=== PATIENT | male | born 1950 | race Caucasian/White ===

== ENCOUNTER 2019-02-19 00:11 | Inpatient (IN) ==
[2019-02-19 00:51] LABS: Bilirubin,Urine Negative (Negative); Blood,Urine Negative (Negative); Clarity,Urine Clear (Clear); Color,Urine Yellow (Yellow); Glucose,Urine (UA) Normal (Normal); Ketones,Urine Negative (Negative); Leukocyte Esterase,Urine Negative (Negative); Nitrite,Urine Negative (Negative); PH,Urine 5.5 pH Units (5.0-8.0); Protein,Urine Negative (Neg-Trace); Specific Gravity,Urine 1.027 (1.010-1.025); Urobilinogen,Urine Normal (Normal)
[2019-02-19 01:30] LABS: Basophils # 0.1 K/mcL (0.0-0.2); Basophils % 0.4 %; Eosinophils # 0.2 K/mcL (0.0-0.6); Eosinophils % 1.4 %; Hematocrit 43.8 % (37.5-50.1); Hemoglobin 14.4 g/dL (12.9-16.9); Immature Granulocytes % 0.4 % (0-4); Lymphocytes # 2.2 K/mcL (0.6-4.6); Mean Corpuscular HGB Conc 32.9 g/dL (31.6-35.5); Mean Corpuscular Hemoglobin 32.4 pg (28.0-33.3); Mean Corpuscular Volume 98.4 fL (83.0-100.0); Mean Platelet Volume 11.7 fL (9.4-12.4); Neutrophils # 9.5 K/mcL (1.6-8.9); Platelet Count 205 K/mcL (140-400); Red Blood Count 4.45 M/mcL (4.19-5.50); Red Cell Distribution Width 12.6 % (11.5-14.5); Segmented Neutrophils % 67.8 %; White Blood Count 13.9 K/mcL (4.3-11.1)
[2019-02-19 01:49] LABS: Albumin 4.4 g/dL (3.5-5.7); Albumin/Globulin Ratio 1.6 (1.1-2.2); Bilirubin,Direct 0.1 mg/dL (0.0-0.2); Bilirubin,Indirect 0.6 mg/dL (0.0-1.2); Bilirubin,Total 0.7 mg/dL (0.3-1.0); Calcium 9.4 mg/dL (8.6-10.3); Globulin 2.8 g/dL (2.4-3.5); Potassium 4.1 mEq/L (3.5-5.1); Total Protein 7.2 g/dL (6.4-8.9)
[2019-02-19] MEDS ORDERED: Isovue-370 500 ML BOTTLE IVP ONE ×2 (03:54→04:22)
[2019-02-19] MEDS ORDERED: 0.9 % Sodium Chloride 1,000 ML IVC ONE ×2 (04:01→04:04)
[2019-02-19] MEDS ORDERED: *HR* FentaNYL (PF) 100 MCG/2 ML VIAL IVP ONE (04:01)
[2019-02-19] MEDS ORDERED: Ondansetron 4 MG/2 ML VIAL IVP ONE (04:01)
--- NOTE | 2019-02-19 04:10 | Emergency Department Note ---
Disposition Clinical Impression: Abdominal pain Qualifiers: Abdominal location: right lower quadrant Qualified Code(s): R10.31 - Right lower quadrant pain Disposition: Still a Patient Condition: Undetermined Referrals: NONE,PCP [Non-Partnered Physician] - Forms: ED Satisfaction Letter, Work/School Release Time of Disposition: 06:00 Abdominal Pain HPI - General Chief Complaint: ED Abdominal Pain Stated Complaint: right lower quadrant pain/chills Time Seen by Provider: 02/19/19 03:46 Source: patient Mode of arrival: ambulatory Limitations: no limitations Nursing Notes Reviewed: Yes Vital Signs Reviewed: Yes - History of Present Illness HPI Narrative: Alert and oriented nontoxic-appearing 68-year-old male presents for evaluation of a day and a half worth of progressively worsening right lower quadrant abdominal pain. This pain is associated with subjective fever and chills as well as nausea. He denies any vomiting, diarrhea, constipation, urinary symptoms, testicular pain or swelling, blood in urine, or blood in the stools. He denies any aggravating or alleviating factors. He denies any known sick contacts or recent foreign travel. Pt Subjective Complaint: abdominal pain Onset (ago): day(s) Consistency: Worsening Location: RLQ Pain Severity: moderate Pain Scale: 8 Quality: aching Radiation: none Migration to: no migration Improves with: nothing Worsens with: nothing Associated symptoms: Reports: nausea, fever, chills. Denies: vomiting, diarrhea, constipation, dysuria, hematemesis, hematochezia, melena, hematuria, anorexia Treatments prior to arrival: none - Related Data Home Medications Medication Instructions Recorded Confirmed Ascorbate Calcium [Vitamin C] 500 mg PO DAILY 06/19/17 06/19/17 Aspirin [Lo-Dose Aspirin EC] 81 mg PO DAILY 06/19/17 06/19/17 Ergocalciferol (VITAMIN D2) 800 unit PO DAILY 06/19/17 06/19/17 [Vitamin D] Fenofibrate Nanocrystallized 145 mg PO DAILY 06/19/17 06/19/17 [Tricor] Insulin ASPART [Novolog Flexpen] 8 unit SQ TID 06/19/17 06/19/17 Insulin Glargine,Hum.rec.anlog 28 unit SQ QPM 06/19/17 06/19/17 [Lantus Solostar] Lisinopril [Zestril] 5 mg PO DAILY 06/19/17 06/19/17 Loratadine [Allergy Relief] 10 mg PO DAILY 06/19/17 06/19/17 Multivit-Min/FA/Lycopen/Lutein [A 1 tab PO DAILY 06/19/17 06/19/17 Thru Z Select Multivit Tab] Pregabalin [Lyrica] 150 mg PO BID 06/19/17 06/19/17 Tamsulosin [Flomax] 0.4 mg PO DAILY 06/19/17 06/19/17 Allergies Allergy/AdvReac Type Severity Reaction Status Date / Time atorvastatin [From Lipitor] AdvReac See Verified 11/10/18 17:13 Comments All systems ED: reviewed and negative except as stated. Review of Systems: As Per HPI Constitutional: Reports: as per HPI, fever, chills. Denies: weakness, weight change Eyes: Denies: eye pain, eye discharge, vision change ENT ED: Denies: ear pain, throat pain, dental pain, hearing loss, epistaxis, congestion, dysphagia Cardiovascular: Denies: chest pain, palpitations, dyspnea on exertion, edema, syncope Respiratory: Denies: cough, dyspnea, wheezes, hemoptysis, stridor Gastrointestinal: Reports: as per HPI, abdominal pain, nausea. Denies: vomiting, diarrhea, constipation, hematemesis, melena, hematochezia Genitourinary: Denies: urgency, dysuria, frequency, hematuria Musculoskeletal: Denies: back pain, neck pain, arthralgia, myalgia Integumentary: Denies: rash, abrasion, lesions Neurological: Denies: headache, weakness, numbness, paresthesias, confusion, abnormal gait, vertigo Psychiatric: Denies: anxiety, depression, suicidal thoughts, homicidal thoughts, auditory hallucinations, visual hallucinations Endocrine: Denies: fatigue Hematological/Lymphatic: Denies: easy bleeding, easy bruising Allergic/Immunologic: Denies: facial swelling, urticaria Abdominal Pain PMH - Past Medical History Medical history: Reports: arthritis, diabetes, hypertension Male Surgical History: Reports: Tonsillectomy Psychiatric history: Reports: no psych history - Social History Smoking status: Former smoker Alcohol use: Reports: none Drug use: Reports: none Physical Exam - General Limitations: no limitations General appearance: alert, in no apparent distress - Head Head exam: atraumatic, normocephalic, normal inspection - Eye Eye exam: Present: normal appearance, PERRL, EOMI. Absent: conjunctival injection - ENT ENT exam: mucous membranes moist - Neck Neck exam: Present: normal inspection, full ROM - Chest Chest inspection: Present: normal inspection, symmetric chest wall rise - Respiratory Respiratory exam: Present: normal lung sounds bilaterally. Absent: respiratory distress, wheezes, stridor, accessory muscle use, prolonged expiratory phase - Cardiovascular Cardiovascular exam: Present: regular rate, normal rhythm, normal heart sounds - Abdominal Exam Abdominal exam: Present: soft, tenderness, rebound (Right lower quadrant, mild), normal bowel sounds, obturator sign, Gustafson's sign, Rovsing's sign, tenderness at McBurney's Point. Absent: distention, guarding, rigidity, psoas sign, heel tap sign, mass Abdominal tenderness: Present: RUQ, RLQ, suprapubic - Extremities Exam Extremities exam: Present: normal inspection, full ROM - Neurological Exam Neurological exam: Present: alert, oriented X3, normal gait - Psychiatric Psychiatric exam: Present: normal affect, normal mood - Skin Skin exam: Present: warm, dry, intact, normal color Course Vital Signs Temperature 98.0 F 02/19/19 00:14 Pulse Rate 90 02/19/19 00:14 Respiratory Rate 20 02/19/19 00:14 Blood Pressure 132/84 02/19/19 00:14 O2 Sat by Pulse Oximetry 100 02/19/19 00:14 Temperature 98.0 F 02/19/19 00:14 Pulse Rate 74 02/19/19 05:39 Respiratory Rate 18 02/19/19 05:39 Blood Pressure 110/66 02/19/19 05:39 O2 Sat by Pulse Oximetry 94 02/19/19 05:39 Oxygen Delivery Oxygen Delivery Room Air Abdominal Pain - Medical Records Medical records reviewed: Yes I reviewed the patient's medical records. - Lab Data Lab results reviewed: Yes I reviewed the patient's lab results. Lab results narrative: Lab Results 02/19/19 02/19/19 02/19/19 Range/Units 00:32 00:51 00:51 WBC 13.9 H (4.3-11.1) K/mcL RBC 4.45 (4.19-5.50) M/mcL Hgb 14.4 (12.9-16.9) g/dL Hct 43.8 (37.5-50.1) % MCV 98.4 (83.0-100.0) fL MCH 32.4 (28.0-33.3) pg MCHC 32.9 (31.6-35.5) g/dL RDW 12.6 (11.5-14.5) % Plt Count 205 (140-400) K/mcL MPV 11.7 (9.4-12.4) fL Immature Gran % 0.4 (0-4) % Seg Neutrophils % 67.8 % Lymphocytes % 16.0 % Monocytes % 14.0 % Eosinophils % 1.4 % Basophils % 0.4 % Neutrophils # 9.5 H (1.6-8.9) K/mcL Lymphocytes # 2.2 (0.6-4.6) K/mcL Monocytes # 2.0 H (0.0-1.3) K/mcL Eosinophils # 0.2 (0.0-0.6) K/mcL Basophils # 0.1 (0.0-0.2) K/mcL Sodium 137 (136-145) mEq/L Potassium 4.1 (3.5-5.1) mEq/L Chloride 106 (98-107) mEq/L Carbon Dioxide 24 (23-29) mEq/L BUN 20 (8-23) mg/dL Creatinine 1.68 H (0.70-1.30) mg/dL Est GFR ( Amer) 50 L (> 60) Est GFR (Non-Af Amer) 41 L (> 60) BUN/Creatinine Ratio 12 (6-26) Glucose 148 H (70-105) mg/dL Calculated Osmolality 289 (280-300) Calcium 9.4 (8.6-10.3) mg/dL Total Bilirubin 0.7 (0.3-1.0) mg/dL Direct Bilirubin 0.1 (0.0-0.2) mg/dL Indirect Bilirubin 0.6 (0.0-1.2) mg/dL AST 20 (13-39) Units/L ALT 25 (7-52) Units/L Alkaline Phosphatase 41 (34-104) Units/L Serum Total Protein 7.2 (6.4-8.9) g/dL Albumin 4.4 (3.5-5.7) g/dL Globulin 2.8 (2.4-3.5) g/dL Albumin/Globulin Ratio 1.6 (1.1-2.2) Amylase 51 (29-103) Units/L Lipase 26 (11-82) Units/L Urine Color Yellow (Yellow) Urine Clarity Clear (Clear) Urine pH 5.5 (5.0-8.0) pH Units Ur Specific [place] 1.027 H (1.010-1.025) Urine Protein Negative (Neg-Trace) mg/dL Urine Glucose (UA) Normal (Normal) mg/dL Urine Ketones Negative (Negative) mg/dL Urine Blood Negative (Negative) Urine Nitrite Negative (Negative) Urine Bilirubin Negative (Negative) Urine Urobilinogen Normal (Normal) mg/dL Ur Leukocyte Esterase Negative (Negative) Ur Culture Indicated? NO (NO) Result diagrams: 02/19/19 00:51 02/19/19 00:51 Lab Results 02/19/19 02/19/19 02/19/19 Range/Units 00:32 00:51 00:51 WBC 13.9 H (4.3-11.1) K/mcL RBC 4.45 (4.19-5.50) M/mcL Hgb 14.4 (12.9-16.9) g/dL Hct 43.8 (37.5-50.1) % MCV 98.4 (83.0-100.0) fL MCH 32.4 (28.0-33.3) pg MCHC 32.9 (31.6-35.5) g/dL RDW 12.6 (11.5-14.5) % Plt Count 205 (140-400) K/mcL MPV 11.7 (9.4-12.4) fL Immature Gran % 0.4 (0-4) % Seg Neutrophils % 67.8 % Lymphocytes % 16.0 % Monocytes % 14.0 % Eosinophils % 1.4 % Basophils % 0.4 % Neutrophils # 9.5 H (1.6-8.9) K/mcL Lymphocytes # 2.2 (0.6-4.6) K/mcL Monocytes # 2.0 H (0.0-1.3) K/mcL Eosinophils # 0.2 (0.0-0.6) K/mcL Basophils # 0.1 (0.0-0.2) K/mcL Sodium 137 (136-145) mEq/L Potassium 4.1 (3.5-5.1) mEq/L Chloride 106 (98-107) mEq/L Carbon Dioxide 24 (23-29) mEq/L BUN 20 (8-23) mg/dL Creatinine 1.68 H (0.70-1.30) mg/dL Est GFR ( Amer) 50 L (> 60) Est GFR (Non-Af Amer) 41 L (> 60) BUN/Creatinine Ratio 12 (6-26) Glucose 148 H (70-105) mg/dL Calculated Osmolality 289 (280-300) Calcium 9.4 (8.6-10.3) mg/dL Total Bilirubin 0.7 (0.3-1.0) mg/dL Direct Bilirubin 0.1 (0.0-0.2) mg/dL Indirect Bilirubin 0.6 (0.0-1.2) mg/dL AST 20 (13-39) Units/L ALT 25 (7-52) Units/L Alkaline Phosphatase 41 (34-104) Units/L Serum Total Protein 7.2 (6.4-8.9) g/dL Albumin 4.4 (3.5-5.7) g/dL Globulin 2.8 (2.4-3.5) g/dL Albumin/Globulin Ratio 1.6 (1.1-2.2) Amylase 51 (29-103) Units/L Lipase 26 (11-82) Units/L Urine Color Yellow (Yellow) Urine Clarity Clear (Clear) Urine pH 5.5 (5.0-8.0) pH Units Ur Specific [place] 1.027 H (1.010-1.025) Urine Protein Negative (Neg-Trace) mg/dL Urine Glucose (UA) Normal (Normal) mg/dL Urine Ketones Negative (Negative) mg/dL Urine Blood Negative (Negative) Urine Nitrite Negative (Negative) Urine Bilirubin Negative (Negative) Urine Urobilinogen Normal (Normal) mg/dL Ur Leukocyte Esterase Negative (Negative) Ur Culture Indicated? NO (NO) - Radiology Data Radiology results reviewed: Yes I reviewed the patient's radiology results. Polly - Ploly Situation: Demographics, MOA Background: Presenting Complaint, Relevant PMH, Meds, & Allergies Assessment: Vital Signs, Course and respsone to treatment, Exam Concerns, Pat ient/Family Expectation, Pertinant Lab Results, Outstanding Labs Recommendation: Barrier(s) to disposition, Recommendation based on pending studies, treatments, or consults S.B.A.R. Report Given to: Morgan Basilio PA-C S.B.A.RRamsey Repor Time: 06:00
[2019-02-19] MEDS ORDERED: *HR* HYDROmorphone (PF) 1 MG/ML SYRINGE IVP ONE (05:28)
--- NOTE | 2019-02-19 06:59 | Emergency Department Note ---
Disposition Clinical Impression: Abdominal pain Qualifiers: Abdominal location: right lower quadrant Qualified Code(s): R10.31 - Right lower quadrant pain Disposition: Still a Patient Condition: Undetermined Referrals: NONE,PCP [Non-Partnered Physician] - Forms: ED Satisfaction Letter, Work/School Release Time of Disposition: 07:02 General Adult HPI - General Chief complaint: ED Abdominal Pain Stated complaint: right lower quadrant pain/chills Time Seen by Provider: 02/19/19 03:46 Source: patient Mode of arrival: ambulatory Limitations: no limitations Nursing Notes Reviewed: Yes Vital Signs Reviewed: Yes - History of Present Illness Pain Scale: 7 - Related Data Home Medications Medication Instructions Recorded Confirmed Ascorbate Calcium [Vitamin C] 500 mg PO DAILY 06/19/17 06/19/17 Aspirin [Lo-Dose Aspirin EC] 81 mg PO DAILY 06/19/17 06/19/17 Ergocalciferol (VITAMIN D2) 800 unit PO DAILY 06/19/17 06/19/17 [Vitamin D] Fenofibrate Nanocrystallized 145 mg PO DAILY 06/19/17 06/19/17 [Tricor] Insulin ASPART [Novolog Flexpen] 8 unit SQ TID 06/19/17 06/19/17 Insulin Glargine,Hum.rec.anlog 28 unit SQ QPM 06/19/17 06/19/17 [Lantus Solostar] Lisinopril [Zestril] 5 mg PO DAILY 06/19/17 06/19/17 Loratadine [Allergy Relief] 10 mg PO DAILY 06/19/17 06/19/17 Multivit-Min/FA/Lycopen/Lutein [A 1 tab PO DAILY 06/19/17 06/19/17 Thru Z Select Multivit Tab] Pregabalin [Lyrica] 150 mg PO BID 06/19/17 06/19/17 Tamsulosin [Flomax] 0.4 mg PO DAILY 06/19/17 06/19/17 Allergies Allergy/AdvReac Type Severity Reaction Status Date / Time atorvastatin [From Lipitor] AdvReac See Verified 11/10/18 17:13 Comments Constitutional: Reports: as per HPI, fever, chills. Denies: weakness, weight change Eyes: Denies: eye pain, eye discharge, vision change ENT ED: Denies: ear pain, throat pain, dental pain, hearing loss, epistaxis, congestion, dysphagia Cardiovascular: Denies: chest pain, palpitations, dyspnea on exertion, edema, syncope Respiratory: Denies: cough, dyspnea, wheezes, hemoptysis, stridor Gastrointestinal: Reports: as per HPI, abdominal pain, nausea. Denies: vomiting, diarrhea, constipation, hematemesis, melena, hematochezia Genitourinary: Denies: urgency, dysuria, frequency, hematuria Musculoskeletal: Denies: back pain, neck pain, arthralgia, myalgia Integumentary: Denies: rash, abrasion, lesions Neurological: Denies: headache, weakness, numbness, paresthesias, confusion, abnormal gait, vertigo Psychiatric: Denies: anxiety, depression, suicidal thoughts, homicidal thoughts, auditory hallucinations, visual hallucinations Endocrine: Denies: fatigue Hematological/Lymphatic: Denies: easy bleeding, easy bruising Allergic/Immunologic: Denies: facial swelling, urticaria Past Medical History - Past Medical History Medical history: Reports: arthritis, diabetes, hypertension Psychiatric history: Reports: no psych history - Social History Smoking Status: Former smoker Smokeless Tobacco Status: No Alcohol use: Reports: none Drug use: Reports: none Physical Exam - General Limitations: no limitations General appearance: alert, in no apparent distress Course Vital Signs Temperature 98.0 F 02/19/19 00:14 Pulse Rate 90 02/19/19 00:14 Respiratory Rate 20 02/19/19 00:14 Blood Pressure 132/84 02/19/19 00:14 O2 Sat by Pulse Oximetry 100 02/19/19 00:14 Temperature 98.0 F 02/19/19 00:14 Pulse Rate 74 02/19/19 05:39 Respiratory Rate 18 02/19/19 05:39 Blood Pressure 110/66 02/19/19 05:39 O2 Sat by Pulse Oximetry 94 02/19/19 05:39 Oxygen Delivery Oxygen Delivery Room Air Medical Decision Making - Lab Data Lab results reviewed: Yes I reviewed the patient's lab results. Result diagrams: 02/19/19 00:51 02/19/19 00:51 Lab Results 02/19/19 02/19/19 02/19/19 Range/Units 00:32 00:51 00:51 WBC 13.9 H (4.3-11.1) K/mcL RBC 4.45 (4.19-5.50) M/mcL Hgb 14.4 (12.9-16.9) g/dL Hct 43.8 (37.5-50.1) % MCV 98.4 (83.0-100.0) fL MCH 32.4 (28.0-33.3) pg MCHC 32.9 (31.6-35.5) g/dL RDW 12.6 (11.5-14.5) % Plt Count 205 (140-400) K/mcL MPV 11.7 (9.4-12.4) fL Immature Gran % 0.4 (0-4) % Seg Neutrophils % 67.8 % Lymphocytes % 16.0 % Monocytes % 14.0 % Eosinophils % 1.4 % Basophils % 0.4 % Neutrophils # 9.5 H (1.6-8.9) K/mcL Lymphocytes # 2.2 (0.6-4.6) K/mcL Monocytes # 2.0 H (0.0-1.3) K/mcL Eosinophils # 0.2 (0.0-0.6) K/mcL Basophils # 0.1 (0.0-0.2) K/mcL Sodium 137 (136-145) mEq/L Potassium 4.1 (3.5-5.1) mEq/L Chloride 106 (98-107) mEq/L Carbon Dioxide 24 (23-29) mEq/L BUN 20 (8-23) mg/dL Creatinine 1.68 H (0.70-1.30) mg/dL Est GFR ( Amer) 50 L (> 60) Est GFR (Non-Af Amer) 41 L (> 60) BUN/Creatinine Ratio 12 (6-26) Glucose 148 H (70-105) mg/dL Calculated Osmolality 289 (280-300) Calcium 9.4 (8.6-10.3) mg/dL Total Bilirubin 0.7 (0.3-1.0) mg/dL Direct Bilirubin 0.1 (0.0-0.2) mg/dL Indirect Bilirubin 0.6 (0.0-1.2) mg/dL AST 20 (13-39) Units/L ALT 25 (7-52) Units/L Alkaline Phosphatase 41 (34-104) Units/L Serum Total Protein 7.2 (6.4-8.9) g/dL Albumin 4.4 (3.5-5.7) g/dL Globulin 2.8 (2.4-3.5) g/dL Albumin/Globulin Ratio 1.6 (1.1-2.2) Amylase 51 (29-103) Units/L Lipase 26 (11-82) Units/L Urine Color Yellow (Yellow) Urine Clarity Clear (Clear) Urine pH 5.5 (5.0-8.0) pH Units Ur Specific [place] 1.027 H (1.010-1.025) Urine Protein Negative (Neg-Trace) mg/dL Urine Glucose (UA) Normal (Normal) mg/dL Urine Ketones Negative (Negative) mg/dL Urine Blood Negative (Negative) Urine Nitrite Negative (Negative) Urine Bilirubin Negative (Negative) Urine Urobilinogen Normal (Normal) mg/dL Ur Leukocyte Esterase Negative (Negative) Ur Culture Indicated? NO (NO) - Radiology Data Radiology results reviewed: Yes I reviewed the patient's radiology results. Abdomen/Pelvis CT 02/19/19 04:22 IMPRESSION: 1. Peripancreatic fat stranding suggests acute pancreatitis. 2. No evidence for appendicitis. D/ / Chiki Patel MD / Chiki Patel MD Interpreting Provider: Chiki Patel MD Attestation Statement - Attestation Attestation: IRikki MD, personally evaluated this patient and discussed their management with the midlevel provicer, PAC/FREIGHT WEIGHER. I reviewed the midlevel provider's note and agree with the documented findings, medical decision making, and plan of care. 68-year-old male presents to the emergency department with a complaint of some right-sided abdominal pain for 1 day prior to arrival. There has been some nausea but no actual vomiting or diarrhea. Some chills but no definite fever. No melena, hematemesis, or hematochezia. On examination patient is a well-developed well-nourished elderly male in no acute distress. He is alert and oriented 3. There is no cyanosis or diaphoresis. Breath sounds are clear and equal bilaterally. Heart regular rate and rhythm. Abdomen is soft with mild right mid abdominal tenderness. No guarding or rebound tenderness. Labs reviewed. CT of the abdomen and pelvis consistent with acute pancreatitis showing some peripancreatic fat stranding. A gallbladder ultrasound was attempted but the classroom technology coach reported that she was unable to completely ultrasound because there was too much bowel gas. We will consult the hospitalist for admission for pancreatitis.
--- NOTE | 2019-02-19 07:06 | Emergency Department Note ---
Disposition Clinical Impression: Abdominal pain Qualifiers: Abdominal location: right lower quadrant Qualified Code(s): R10.31 - Right lower quadrant pain Acute pancreatitis Qualifiers: Pancreatitis type: other Acute pancreatitis complication: unspecified Qualified Code(s): K85.80 - Other acute pancreatitis without necrosis or infection Disposition: Admitted As Inpatient Condition: Fair Time of Disposition: 07:40 Abdominal Pain HPI - General Chief Complaint: ED Abdominal Pain Stated Complaint: right lower quadrant pain/chills Time Seen by Provider: 02/19/19 03:46 Source: patient Mode of arrival: ambulatory - History of Present Illness Pt Subjective Complaint: abdominal pain Location: RLQ Pain Severity: moderate Pain Scale: 7 Quality: aching Migration to: no migration Improves with: nothing Worsens with: nothing Associated symptoms: Reports: nausea, fever, chills. Denies: vomiting, diarrhea, constipation, dysuria, hematemesis, hematochezia, melena, hematuria, anorexia - Related Data Home Medications Medication Instructions Recorded Confirmed Ascorbate Calcium [Vitamin C] 500 mg PO DAILY 06/19/17 02/19/19 Aspirin [Lo-Dose Aspirin EC] 81 mg PO DAILY 06/19/17 02/19/19 Ergocalciferol (VITAMIN D2) 800 unit PO DAILY 06/19/17 02/19/19 [Vitamin D] Fenofibrate Nanocrystallized 145 mg PO DAILY 06/19/17 02/19/19 [Tricor] Insulin ASPART [Novolog Flexpen] 8 unit SQ TID 06/19/17 02/19/19 Insulin Glargine,Hum.rec.anlog 28 unit SQ QPM 06/19/17 02/19/19 [Lantus Solostar] Lisinopril [Zestril] 5 mg PO DAILY 06/19/17 02/19/19 Loratadine [Allergy Relief] 10 mg PO DAILY 06/19/17 06/19/17 Multivit-Min/FA/Lycopen/Lutein [A 1 tab PO DAILY 06/19/17 02/19/19 Thru Z Select Multivit Tab] Pregabalin [Lyrica] 150 mg PO BID 06/19/17 02/19/19 Tamsulosin [Flomax] 0.4 mg PO DAILY 06/19/17 06/19/17 Allergies Allergy/AdvReac Type Severity Reaction Status Date / Time atorvastatin [From Lipitor] AdvReac See Verified 11/10/18 17:13 Comments Constitutional: Reports: as per HPI, fever, chills. Denies: weakness, weight change Eyes: Denies: eye pain, eye discharge, vision change ENT ED: Denies: ear pain, throat pain, dental pain, hearing loss, epistaxis, congestion, dysphagia Cardiovascular: Denies: chest pain, palpitations, dyspnea on exertion, edema, syncope Respiratory: Denies: cough, dyspnea, wheezes, hemoptysis, stridor Gastrointestinal: Reports: as per HPI, abdominal pain, nausea. Denies: vomiting, diarrhea, constipation, hematemesis, melena, hematochezia Genitourinary: Denies: urgency, dysuria, frequency, hematuria Musculoskeletal: Denies: back pain, neck pain, arthralgia, myalgia Integumentary: Denies: rash, abrasion, lesions Neurological: Denies: headache, weakness, numbness, paresthesias, confusion, abnormal gait, vertigo Psychiatric: Denies: anxiety, depression, suicidal thoughts, homicidal thoughts, auditory hallucinations, visual hallucinations Endocrine: Denies: fatigue Hematological/Lymphatic: Denies: easy bleeding, easy bruising Allergic/Immunologic: Denies: facial swelling, urticaria Abdominal Pain PMH - Past Medical History Medical history: Reports: arthritis, diabetes, hypertension Male Surgical History: Reports: Tonsillectomy Psychiatric history: Reports: no psych history - Social History Smoking status: Former smoker Alcohol use: Reports: none Drug use: Reports: none Physical Exam - General Limitations: no limitations General appearance: alert, in no apparent distress Course Vital Signs Temperature 98.0 F 02/19/19 00:14 Pulse Rate 90 02/19/19 00:14 Respiratory Rate 20 02/19/19 00:14 Blood Pressure 132/84 02/19/19 00:14 O2 Sat by Pulse Oximetry 100 02/19/19 00:14 Temperature 97.9 F 02/19/19 10:25 Pulse Rate 73 02/19/19 10:25 Respiratory Rate 14 02/19/19 10:25 Blood Pressure 113/66 02/19/19 10:25 O2 Sat by Pulse Oximetry 96 02/19/19 10:25 Oxygen Delivery Oxygen Delivery Room Air Abdominal Pain - MDM Narrative Medical decision making narrative: 68-year-old male presents with acute worsening abdominal pain for 2 days, associated with nausea. No past history of abdomen surgery. Patient had a bowel movement this morning. Patient reported his chairs and a subjective fever at home. Patient's last male was yesterday afternoon. Labs white cell 13.9. Lipase negative. However his abdomen CT indicated acute pancreatitis. Patient is on NPO. Patient will be admitted to hospital. Ultrasound of the gallbladder ordered. Unfortunately gas plant technician stated she could not get good imagine due to too many gas. Patient's liver enzyme he is normal. Dr. Spencer has seen the patient and agrees the above plan. - Lab Data Result diagrams: 02/19/19 00:51 02/19/19 00:51 Lab Results 02/19/19 02/19/19 02/19/19 Range/Units 00:32 00:51 00:51 WBC 13.9 H (4.3-11.1) K/mcL RBC 4.45 (4.19-5.50) M/mcL Hgb 14.4 (12.9-16.9) g/dL Hct 43.8 (37.5-50.1) % MCV 98.4 (83.0-100.0) fL MCH 32.4 (28.0-33.3) pg MCHC 32.9 (31.6-35.5) g/dL RDW 12.6 (11.5-14.5) % Plt Count 205 (140-400) K/mcL MPV 11.7 (9.4-12.4) fL Immature Gran % 0.4 (0-4) % Seg Neutrophils % 67.8 % Lymphocytes % 16.0 % Monocytes % 14.0 % Eosinophils % 1.4 % Basophils % 0.4 % Neutrophils # 9.5 H (1.6-8.9) K/mcL Lymphocytes # 2.2 (0.6-4.6) K/mcL Monocytes # 2.0 H (0.0-1.3) K/mcL Eosinophils # 0.2 (0.0-0.6) K/mcL Basophils # 0.1 (0.0-0.2) K/mcL Sodium 137 (136-145) mEq/L Potassium 4.1 (3.5-5.1) mEq/L Chloride 106 (98-107) mEq/L Carbon Dioxide 24 (23-29) mEq/L BUN 20 (8-23) mg/dL Creatinine 1.68 H (0.70-1.30) mg/dL Est GFR ( Amer) 50 L (> 60) Est GFR (Non-Af Amer) 41 L (> 60) BUN/Creatinine Ratio 12 (6-26) Glucose 148 H (70-105) mg/dL Calculated Osmolality 289 (280-300) Calcium 9.4 (8.6-10.3) mg/dL Total Bilirubin 0.7 (0.3-1.0) mg/dL Direct Bilirubin 0.1 (0.0-0.2) mg/dL Indirect Bilirubin 0.6 (0.0-1.2) mg/dL AST 20 (13-39) Units/L ALT 25 (7-52) Units/L Alkaline Phosphatase 41 (34-104) Units/L Serum Total Protein 7.2 (6.4-8.9) g/dL Albumin 4.4 (3.5-5.7) g/dL Globulin 2.8 (2.4-3.5) g/dL Albumin/Globulin Ratio 1.6 (1.1-2.2) Amylase 51 (29-103) Units/L Lipase 26 (11-82) Units/L Urine Color Yellow (Yellow) Urine Clarity Clear (Clear) Urine pH 5.5 (5.0-8.0) pH Units Ur Specific [place] 1.027 H (1.010-1.025) Urine Protein Negative (Neg-Trace) mg/dL Urine Glucose (UA) Normal (Normal) mg/dL Urine Ketones Negative (Negative) mg/dL Urine Blood Negative (Negative) Urine Nitrite Negative (Negative) Urine Bilirubin Negative (Negative) Urine Urobilinogen Normal (Normal) mg/dL Ur Leukocyte Esterase Negative (Negative) Ur Culture Indicated? NO (NO)
--- NOTE | 2019-02-19 08:19 | Internal Med History&Physical ---
Date of Encounter: 02/20/19 Internal Medicine - H&P: HPI History of present illness: 68-year-old male presents with arthritis, diabetes and hypertension , who presented to the ER with 2 days history of acute worsening of generalized abdominal pain associated with nausea, chills and subjective fever. The patient denies chest pain, shortness of breath, palpitation, vomiting, diarrhea, changes urinary habits. The patient was evaluated by the ER staff and his CT scan did revealed acute pancreatitis. His laboratory data shows leukocytosis with white blood cell count of 13.9 however lipase was negative. The patient was admitted to the hospital for further evaluation and management of acute pancreatitis. Past Med Surg Social Fam HX - Past Medical History Medical history: arthritis, diabetes, hypertension Additional medical history: diverticulosis,irreg beat,stage3 kidney disease Psychiatric history: no psych history - Past Surgical History Additional surgical history: tonsillectomy - Social History Smoking Status: Former smoker Smokeless Tobacco Status: No Alcohol use: none Drug use: none Internal Medicine - H&P: Meds Ascorbate Calcium [Vitamin C] 500 mg PO DAILY 06/19/17 [History] Aspirin [Lo-Dose Aspirin EC] 81 mg PO DAILY 06/19/17 [History] Ergocalciferol (VITAMIN D2) [Vitamin D] 800 unit PO DAILY 06/19/17 [History] Fenofibrate Nanocrystallized [Tricor] 145 mg PO DAILY 06/19/17 [History] Insulin ASPART [Novolog Flexpen] 8 unit SQ TID 06/19/17 [History] Insulin Glargine,Hum.rec.anlog [Lantus Solostar] 28 unit SQ QPM 06/19/17 [History] Lisinopril [Zestril] 5 mg PO DAILY 06/19/17 [History] Loratadine [Allergy Relief] 10 mg PO DAILY 06/19/17 [History] Multivit-Min/FA/Lycopen/Lutein [A Thru Z Select Multivit Tab] 1 tab PO DAILY 06/19/17 [History] Pregabalin [Lyrica] 150 mg PO BID 06/19/17 [History] Tamsulosin [Flomax] 0.4 mg PO DAILY 06/19/17 [History] Allergy/AdvReac Type Severity Reaction Status Date / Time atorvastatin [From Lipitor] AdvReac See Verified 11/10/18 17:13 Comments All Systems PM: A 10-system review of systems was performed and is negative for pertinent findings except as documented above in the HPI. - Constitutional Vitals: Temp Pulse Resp BP Pulse Ox 98.0 F 79 14 104/65 96 02/19/19 00:14 02/19/19 07:37 02/19/19 08:10 02/19/19 08:10 02/19/19 07:37 General appearance: Present: A&O X 3 - Head Head exam: Present: atraumatic, normocephalic - Neck Neck exam general surgery: Present: supple, trachea midline. Absent: lymphadenopathy - Respiratory Respiratory exam: Present: CTAB. Absent: accessory muscle use, rales, rhonchi, wheezes - Cardiovascular Cardiovascular exam: Present: RRR, +S1, +S2. Absent: diastolic murmur, gallop, rubs, systolic murmur - GI/Abdominal GI/Abdominal exam: Present: normal bowel sounds, soft, tenderness, no peritoneal signs. Absent: distended - Extremities Exam Extremities exam: Present: warm, radial pulses palpable and symmetrical. Absent: calf tenderness, cyanotic, pedal edema Internal Med - H&P Results - Labs CBC & Chem 7: 02/19/19 00:51 02/19/19 00:51 Labs: Short CBC 02/19/19 Range/Units 00:51 WBC 13.9 H (4.3-11.1) K/mcL Hgb 14.4 (12.9-16.9) g/dL Hct 43.8 (37.5-50.1) % Plt Count 205 (140-400) K/mcL Neutrophils # 9.5 H (1.6-8.9) K/mcL BMP 02/19/19 00:51 Sodium 137 Potassium 4.1 Chloride 106 Carbon Dioxide 24 BUN 20 Creatinine 1.68 H Glucose 148 H Calcium 9.4 Liver Function 02/19/19 Range/Units 00:51 Total Bilirubin 0.7 (0.3-1.0) mg/dL Direct Bilirubin 0.1 (0.0-0.2) mg/dL AST 20 (13-39) Units/L ALT 25 (7-52) Units/L Alkaline Phosphatase 41 (34-104) Units/L Albumin 4.4 (3.5-5.7) g/dL Urine 02/19/19 Range/Units 00:32 Urine Color Yellow (Yellow) Urine Clarity Clear (Clear) Urine pH 5.5 (5.0-8.0) pH Units Ur Specific [place] 1.027 H (1.010-1.025) Urine Protein Negative (Neg-Trace) mg/dL Urine Glucose (UA) Normal (Normal) mg/dL - Impressions ITS Impressions Abdomen/Pelvis CT 02/19/19 04:22 IMPRESSION: 1. Peripancreatic fat stranding suggests acute pancreatitis. 2. No evidence for appendicitis. D/ / Chiki Patel MD / Chiki Patel MD Interpreting Provider: Chiki Patel MD - Assessment and Plan (1) Acute pancreatitis Current Visit: Yes Status: Acute Assessment and plan: ASSESSMENT: - Abdominal pain due to Pancreatitis PLAN: - NPO apart from meds - IVF NS at 125 cc/hr x 2 L - Urine C+S - Liver/gallbladder U/S - CBCD, CMP in AM Qualifiers: Pancreatitis type: other Acute pancreatitis complication: unspecified Qualified Code(s): K85.80 - Other acute pancreatitis without necrosis or infection (2) Hypertension Current Visit: Yes Status: Acute Assessment and plan: We will be holding home meds and start the patient on when necessary antihypertensive for systolic blood pressure above 180 and systolic blood pressure (3) Diabetes Current Visit: Yes Status: Acute Assessment and plan: We will be starting the patient and insulin sliding scale with coverage (4) DVT prophylaxis Current Visit: Yes Status: Acute - Time Spent With Patient Total time spent is greater than 50% in coordination of care (as documented) at patient's floor/unit and/or counseling patient:
[2019-02-19] MEDS ORDERED: Ondansetron 4 MG/2 ML VIAL IVP PRN (08:32)
[2019-02-19] MEDS ORDERED: Naloxone 0.4 MG/ML INJ IVP PRN (08:32)
[2019-02-19] MEDS ORDERED: Simethicone 80 MG TAB.CHEW PO PRN (08:34)
[2019-02-19] MEDS ORDERED: Dextrose Gel 15 GM/37.5 ML TUBE PO PRN ×2 (08:37)
[2019-02-19] MEDS ORDERED: D5% in Water 1,000 ML IVC PRN (08:37)
[2019-02-19] MEDS ORDERED: *HR* Dextrose 50 % in Water (Syg) 50 ML SYRINGE IVP PRN (08:37)
[2019-02-19] MEDS: 0.9 % Sodium Chloride 1,000 ML IVC SCH ×2 (10:13→18:38)
[2019-02-19] MEDS: *HR* OxyCODONE/APAP 5/325 TABLET PO PRN ×2 (11:08→19:42)
[2019-02-19] MEDS: Insulin LISPRO 300 UNITS/3 ML VIAL SQ SCH ×3 (12:37→23:31)
[2019-02-20 05:31] LABS: Basophils # 0.1 K/mcL (0.0-0.2); Basophils % 0.7 %; Eosinophils # 0.4 K/mcL (0.0-0.6); Eosinophils % 4.3 %; Hematocrit 39.9 % (37.5-50.1); Hemoglobin 13.3 g/dL (12.9-16.9); Immature Granulocytes % 0.4 % (0-4); Lymphocytes # 1.8 K/mcL (0.6-4.6); Lymphocytes % 22.1 %; Mean Corpuscular HGB Conc 33.3 g/dL (31.6-35.5); Mean Corpuscular Hemoglobin 32.6 pg (28.0-33.3); Mean Corpuscular Volume 97.8 fL (83.0-100.0); Mean Platelet Volume 11.9 fL (9.4-12.4); Monocytes % 12.1 %; Neutrophils # 4.9 K/mcL (1.6-8.9); Platelet Count 189 K/mcL (140-400); Red Blood Count 4.08 M/mcL (4.19-5.50); Red Cell Distribution Width 12.5 % (11.5-14.5); Segmented Neutrophils % 60.4 %; White Blood Count 8.1 K/mcL (4.3-11.1)
[2019-02-20 05:38] LABS: INR 1.2; Prothrombin Time 13.3 Seconds (9.4-12.1)
[2019-02-20 05:40] LABS: Activated Partial Thrombo Time 31.6 Seconds (26.0-36.0)
[2019-02-20] MEDS: Insulin LISPRO 300 UNITS/3 ML VIAL SQ SCH ×3 (05:47→16:40)
[2019-02-20 06:18] LABS: Carbon Dioxide 24 mEq/L (23-29)
[2019-02-20 06:23] LABS: Alanine Aminotransferase 19 Units/L (7-52); Albumin 3.5 g/dL (3.5-5.7); Albumin/Globulin Ratio 1.2 (1.1-2.2); Alkaline Phosphatase 31 Units/L (34-104); Aspartate Amino Transferase 17 Units/L (13-39); BUN/Creatinine Ratio 12 (6-26); Bilirubin,Total 0.7 mg/dL (0.3-1.0); Blood Urea Nitrogen 17 mg/dL (8-23); Calcium 8.6 mg/dL (8.6-10.3); Chloride 108 mEq/L (98-107); Chol/HDL Ratio 3.3 (0-4.9); Cholesterol 145 mg/dL (< 200); Globulin 2.9 g/dL (2.4-3.5); Glucose 85 mg/dL (70-105); HDL Cholesterol 44 mg/dL (40-59); LDL Cholesterol,Calculated 74 mg/dL (0-99); Magnesium 1.9 mg/dL (1.6-2.6); Osmolality,Calculated 291 (280-300); Phosphorous 2.7 mg/dL (2.7-4.5); Potassium 4.1 mEq/L (3.5-5.1); Sodium 140 mEq/L (136-145); Total Protein 6.4 g/dL (6.4-8.9); Triglycerides 134 mg/dL (< 150); eGFR For African Americans > 60 (> 60); eGFR For Non-African Americans 51 (> 60)
[2019-02-20] MEDS: Aspirin Enteric Coated 81 MG Tablet PO SCH (09:20)
[2019-02-20] MEDS: Pregabalin 75 MG CAPSULE PO SCH ×2 (09:20→21:24)
[2019-02-20] MEDS: Fenofibrate 54 MG TABLET PO SCH (09:20)
[2019-02-20] MEDS: 0.9 % Sodium Chloride 1,000 ML IVC SCH ×2 (09:20→17:47)
--- NOTE | 2019-02-20 11:56 | Internal Med Progress Note ---
Hospitalist Progress Note - Encounter Date of Encounter: 02/20/19 Time of Encounter: 10:15 - Subjective Interval History: H&P reviewed. Patient with history of diabetes, hypertension, CKD, was admitted overnight due to abdominal pain radiating to his back and CT showed findings compatible with acute pancreatitis. Reports improvement in his symptoms ove rnight after the tx. No fever, N/V, or chills. - Exam Vitals: Temp Pulse Resp BP Pulse Ox 98.1 F 77 14 107/67 98 02/20/19 09:56 02/20/19 09:56 02/20/19 09:56 02/20/19 09:56 02/20/19 09:56 Exam: General: Alert and oriented, not in acute distress. Cardiovascular:Normal S1 & S2, No JVD. Pulse regular. Lungs: clear to auscultation, no wheezes/rales Abdomen:Soft, non-tender, no rigidity. Extremities:No deformity or swelling Neurological:Normal cognition and motor skills. Non-focal - Assessment and Plan (1) Acute pancreatitis Current Visit: Yes Status: Acute Assessment and Plan: Pt reports that he was known to have gallbladder sludge on US done at [facility]. However, his LFT was unremarkable and US did not show any gallstones or sludge no hyperTG on lipid panel this morning pt does not drink EtOH on a regular basis, last drink was a can of beer 1 month ago ?cause for pancreatitis, could possibly related to biliary sludge that was previously seen given his clinical improvement yesterday, will start CLD from lunch onward and advance as tolerated (2) Hypertension Current Visit: Yes Status: Chronic Assessment and Plan: Resume home meds (3) Diabetes Current Visit: Yes Status: Chronic Assessment and Plan: low dose sliding scale (4) DVT prophylaxis Current Visit: Yes Status: Acute Assessment and Plan: EPCD - Time Spent with Patient Total time spent is greater than 50% in coordination of care (as documented) at patient's floor/unit and/or counseling patient: 25 - 35 minutes Plan of Care Discussed with: patient (Discussed with RN) Internal Medicine: Result - Labs CBC & Chem 7: 02/20/19 04:34 02/20/19 04:34 Labs: Short CBC 02/20/19 Range/Units 04:34 WBC 8.1 (4.3-11.1) K/mcL Hgb 13.3 (12.9-16.9) g/dL Hct 39.9 (37.5-50.1) % Plt Count 189 (140-400) K/mcL Neutrophils # 4.9 (1.6-8.9) K/mcL BMP 02/20/19 04:34 Sodium 140 Potassium 4.1 Chloride 108 H Carbon Dioxide 24 BUN 17 Creatinine 1.39 H Glucose 85 Calcium 8.6 Liver Function 02/20/19 Range/Units 04:34 Total Bilirubin 0.7 (0.3-1.0) mg/dL AST 17 (13-39) Units/L ALT 19 (7-52) Units/L Alkaline Phosphatase 31 L (34-104) Units/L Albumin 3.5 (3.5-5.7) g/dL - ABG Interpretation ABG results: PT/INR, D-dimer PT 13.3 Seconds (9.4-12.1) H 02/20/19 04:34 - Impressions Impressions Gallbladder Ultrasound 02/19/19 05:28 IMPRESSION: 1. Gallbladder appears within normal limits. 2. Likely hepatic fatty infiltration as described. D/ / Chanell Gambino MD / Chanell Gambino MD Interpreting Provider: Chanell Gambino MD Consult Discharge Plan - Plan Referrals: Nadine Ennis, [Primary Care Provider] - (1) Acute pancreatitis Qualifiers: Pancreatitis type: other Acute pancreatitis complication: unspecified Qualified Code(s): K85.80 - Other acute pancreatitis without necrosis or infection (2) Hypertension Qualifiers: Hypertension type: essential hypertension Qualified Code(s): I10 - Essential (primary) hypertension (3) Diabetes Qualifiers: Diabetes mellitus type: type 2 Diabetes mellitus group home insulin use: without group home use Diabetes mellitus complication status: without complication Qualified Code(s): E11.9 - Type 2 diabetes mellitus without complications
[2019-02-20] MEDS ORDERED: Insulin LISPRO 300 UNITS/3 ML VIAL SQ SCH (21:00)
[2019-02-20] MEDS: *HR* OxyCODONE/APAP 5/325 TABLET PO PRN (21:26)
[2019-02-21 02:06] LABS: Basophils # 0.1 K/mcL (0.0-0.2); Basophils % 0.9 %; Eosinophils # 0.4 K/mcL (0.0-0.6); Eosinophils % 6.4 %; Hematocrit 39.3 % (37.5-50.1); Hemoglobin 13.2 g/dL (12.9-16.9); Immature Granulocytes % 0.4 % (0-4); Lymphocytes # 1.9 K/mcL (0.6-4.6); Lymphocytes % 34.6 %; Mean Corpuscular HGB Conc 33.6 g/dL (31.6-35.5); Mean Corpuscular Volume 98.3 fL (83.0-100.0); Mean Platelet Volume 11.5 fL (9.4-12.4); Monocytes # 0.6 K/mcL (0.0-1.3); Monocytes % 11.2 %; Neutrophils # 2.6 K/mcL (1.6-8.9); Platelet Count 202 K/mcL (140-400); Red Cell Distribution Width 12.2 % (11.5-14.5); Segmented Neutrophils % 46.5 %; White Blood Count 5.6 K/mcL (4.3-11.1)
[2019-02-21 02:25] LABS: Albumin 3.6 g/dL (3.5-5.7); Albumin/Globulin Ratio 1.3 (1.1-2.2); Bilirubin,Total 0.5 mg/dL (0.3-1.0); Calcium 8.6 mg/dL (8.6-10.3); Globulin 2.8 g/dL (2.4-3.5); Potassium 4.1 mEq/L (3.5-5.1); Total Protein 6.4 g/dL (6.4-8.9)
[2019-02-21] MEDS: Insulin LISPRO 300 UNITS/3 ML VIAL SQ SCH (08:14)
--- NOTE | 2019-02-21 09:20 | Discharge Summary ---
- NOTES TO OUTPATIENT PROVIDER Notes to Outpatient Provider: Admitted for pancreatitis ?cause. Follow up with surgery for possible cholecystectomy Date of Encounter: 02/21/19 Time of Encounter: 07:30 - Discharge Diagnosis (1) Acute pancreatitis Priority: Primary Status: Acute Qualifiers: Pancreatitis type: other Acute pancreatitis complication: unspecified Qualified Code(s): K85.80 - Other acute pancreatitis without necrosis or infection (2) Hypertension Priority: Secondary Status: Chronic Qualifiers: Hypertension type: essential hypertension Qualified Code(s): I10 - Essential (primary) hypertension (3) Diabetes Priority: Secondary Status: Chronic Qualifiers: Diabetes mellitus type: type 2 Diabetes mellitus detention insulin use: 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 Quiles is a 68 year old male history of diabetes, hypertension, CKD, who was admitted for abdominal pain radiating to the back and CT finding +ve for peripancreatic fat stranding suggestive of acute pancreatitis. Lipase/amylase however were normal. No history of recent EtOH ingestion, lipid panel unremarkable. Patient reported history of gallbladder sludge on the ultrasound done at the [facility] but both ultrasound and CT scan at our facility did not show any gallstones/sludge. LFT also normal x 3. He clinically improved with sup portive mx and was advised to follow up with surgery with US report from [facility] for consideration of cholecystectomy Discharge discussed with: patient, nurse - Time Spent with Patient Total time spent providing and/or coordinating discharge services: 31 mins - Discharge Medications Prescriptions: Continued Tamsulosin [Flomax] 0.4 mg PO DAILY Fenofibrate Nanocrystallized [Tricor] 145 mg PO DAILY Insulin Glargine,Hum.rec.anlog [Lantus Solostar] 28 unit SQ HS Pregabalin [Lyrica] 150 mg PO BID Loratadine [Allergy Relief] 10 mg PO DAILY PRN PRN Reason: Allergy Symptoms Ergocalciferol (VITAMIN D2) [Vitamin D] 800 unit PO DAILY Ascorbate Calcium [Vitamin C] 500 mg PO BID Lisinopril [Zestril] 2.5 mg PO DAILY Insulin ASPART [Novolog Flexpen] 8 unit SQ TIDAC Aspirin [Adult Aspirin Regimen] 81 mg PO DAILY Multivitamin [Daily Multiple Vitamin] 1 tab PO DAILY Sildenafil Citrate [Viagra] 100 mg PO AD PRN PRN Reason: ERECTION Metoprolol 0.5 tab PO HS Home Medications: Ascorbate Calcium [Vitamin C] 500 mg PO BID 06/19/17 [History] Ergocalciferol (VITAMIN D2) [Vitamin D] 800 unit PO DAILY 06/19/17 [History] Fenofibrate Nanocrystallized [Tricor] 145 mg PO DAILY 06/19/17 [History] Insulin ASPART [Novolog Flexpen] 8 unit SQ TIDAC 06/19/17 [History] Insulin Glargine,Hum.rec.anlog [Lantus Solostar] 28 unit SQ HS 06/19/17 [History] Lisinopril [Zestril] 2.5 mg PO DAILY 06/19/17 [History] Loratadine [Allergy Relief] 10 mg PO DAILY PRN 06/19/17 [History] Pregabalin [Lyrica] 150 mg PO BID 06/19/17 [History] Tamsulosin [Flomax] 0.4 mg PO DAILY 06/19/17 [History] Aspirin [Adult Aspirin Regimen] 81 mg PO DAILY 02/21/19 [History] Metoprolol 0.5 tab PO HS 02/21/19 [History] Multivitamin [Daily Multiple Vitamin] 1 tab PO DAILY 02/21/19 [History] Sildenafil Citrate [Viagra] 100 mg PO AD PRN 02/21/19 [History] Allergies/Adverse Reactions: Allergy/AdvReac Type Severity Reaction Status Date / Time atorvastatin [From Lipitor] AdvReac See Verified 02/21/19 08:05 Comments Date of admission: 02/20/19 10:03 Primary care physician: Aubrie Andres Constitutional Vitals: Temp Pulse Resp BP Pulse Ox 97.9 F 63 16 114/70 95 02/21/19 06:30 02/21/19 06:30 02/21/19 06:30 02/21/19 06:30 02/21/19 06:30 General appearance: Present: A&O X 3 Exam: General: Alert and oriented, not in acute distress. Cardiovascular:Normal S1 & S2, No JVD. Pulse regular. Lungs: clear to auscultation, no wheezes/rales Abdomen:Soft, non-tender, no rigidity. Extremities:No deformity or swelling Neurological:Normal cognition and motor skills. Non-focal - Patient Status Disposition: Home, Self-Care Condition: Fair Functional capacity at discharge: independent ambulation Overall status at discharge: patient is progressing back to baseline - Discharge Instructions Instructions: Pancreatitis (DC), Diabetes Mellitus Type 2 in Adults (DC), Chronic Hypertension (DC) Follow Up With: Nadine Ennis DO [Primary Care Provider] - Leroy Holloway MD [Non-Partnered Physician] - - Diet and Activity Activity: resume usual activities as tolerated Diet: advance to your usual diet
[2019-02-21] MEDS: Pregabalin 75 MG CAPSULE PO SCH (10:23)
[2019-02-21] MEDS: Fenofibrate 54 MG TABLET PO SCH (10:23)
[2019-02-21] MEDS: Aspirin Enteric Coated 81 MG Tablet PO SCH (10:24)
[2019-02-22 10:50] VITALS: BP 120/73
== END 2019-02-21 11:00 | disposition home or self-care (01) | DRG 440 ==
LOC: EMEROOARM 00:11 → 3ANU 00:11 → SUATTDRO 02-20 10:03
PROVIDERS: ADMIT Internal Medicine Nephrology; ATTEND Internal Medicine